=== PATIENT | female | born 1995 | race Caucasian/White ===

== ENCOUNTER 2019-05-24 10:52 | Inpatient (IN) ==
[2019-05-24] MEDS ORDERED: RINGER'S SOLUTION,LACTATED 1,000 ML IV ONE (10:59)
[2019-05-24] MEDS ORDERED: OXYTOCIN/DEXTROSE 5%-WATER 30 UNITS/500 ML BAG IV ONE (10:59)
[2019-05-24] MEDS ORDERED: NALBUPHINE HCL 10 MG/ML AMPUL IV PRN ×2 (10:59)
[2019-05-24] MEDS ORDERED: LIDOCAINE HCL 50 ML VIAL PERI PRN (10:59)
[2019-05-24] MEDS ORDERED: ONDANSETRON 4 MG TAB.RAPDIS PO PRN (10:59)
[2019-05-24] MEDS: RINGER'S SOLUTION,LACTATED 1,000 ML IV PRN ×2 (11:26→19:29)
[2019-05-24] MEDS: VANCOMYCIN HCL 1 GM in DEXTROSE 5 % IN WATER 250 ML IV SCH ×4 (11:29→23:14)
[2019-05-24] MEDS: MISOPROSTOL 100 MCG TABLET VG PRN ×2 (11:40→16:24)
[2019-05-24 12:17] LABS: Cocaine Ur Negative (NEGATIVE); Urine Barbiturate Negative (NEGATIVE); Urine Benzodiazepines Negative (NEGATIVE); Urine Opiates Negative (NEGATIVE); Urine PCP Negative (NEGATIVE); Urine THC Negative (NEGATIVE)
--- NOTE | 2019-05-24 16:40 | HP ---
Chief Complaint - Chief Complaint Date of Service: 05/24/19 Time of Service: 16:34 Chief Complaint: labor induction History of Present Illness: 24 year old @ 40w 3d here for medical IOL due to post due date and variable decelerations on routine monitoring today. She denies regular ctx, vb, lof. Fetus is active Medical History (Updated 05/24/19 @ 10:50 by Nunu Rodriguez MD) Anemia Onset Date: 02/08/19 w/ ADD (attention deficit disorder) Onset Date: Unknown Pancreatitis Onset Date: ~2018 Surgical History: Surgical History (Updated 05/24/19 @ 11:16 by Heather Velez RN) History of tonsillectomy and adenoidectomy H/O myringotomy Onset Date: Unknown Family History: Family History (Updated 10/12/18 @ 09:10 by Jackeline Larkin RN) Mother Alive and well Anemia Social History: (Last Reviewed 05/24/19 @ 11:16 by Heather Velez RN) Social History: Marital status: Single current occupational status: employed current occupation: [email or web address]: No Tobacco: Smoking Status: Current every day smoker tobacco type: cigarettes Alcohol: alcohol intake: former Substance Use: substance use type: does not use Dietary Habits: caffeine: Yes Review Of Systems (GEN) - Review of Systems Generalized/Overall Review: Present: No Symptoms Reported Misc: All systems neg except as marked Allergies/Adverse Reactions: Allergies Allergy/AdvReac Type Severity Reaction Status Date / Time Penicillins Allergy Intermediate hives Verified 05/24/19 11:00 kiwi Allergy rash Verified 05/24/19 11:00 Home Medications: HOME MEDICATIONS acetaminophen 500 mg tablet 500 mg PO Q6H PRN 02/08/19 [Last Taken 05/24/19] ferrous sulfate 325 mg (65 mg iron) tablet 325 mg PO DAILY #30 tab 02/09/19 [Last Taken Unknown] Vits96/Iron Fum/Folic [ S] 1 tab PO DAILY 05/24/19 [Last Taken Unknown] Exam - Exam Vital Signs: Vital Signs - Last Taken Temp 36.5 C 05/24/19 12:23 Pulse 73 05/24/19 12:23 Resp 16 05/24/19 12:23 BP 118/74 05/24/19 12:23 Pulse Ox 97 05/24/19 12:23 Constitutional: Present: Alert, Oriented x3, Cooperative, No distress Respiratory: Present: lungs clear, normal breath sounds Cardiovascular/Chest: Present: regular rate, rhythm, no murmur Abdomen: Present: soft, nontender, nondistended Extremity: Present: non-tender, no calf tenderness Skin Exam: Present: normal color, warm/dry, no cyanosis Appearance: Present: appropriate appearance Eye contact: Present: cooperative Thoughts: Present: normal thought pattern Diagnostic Studies: Laboratory Results Negative (NEGATIVE) 05/24/19 11:40 Negative (NEGATIVE) 05/24/19 11:40 Ur Phencyclidine Scrn Negative (NEGATIVE) 05/24/19 11:40 Urine Amphetamine Negative (NEGATIVE) 05/24/19 11:40 U Benzodiazepines Scrn Negative (NEGATIVE) 05/24/19 11:40 Negative (NEGATIVE) 05/24/19 11:40 Negative (NEGATIVE) 05/24/19 11:40 Blood Type A Positive 05/24/19 11:10 Antibody Screen Negative 05/24/19 11:10 Assessment/Plan - Narrative Narrative: 24 year old @ 40w 3d 1. Medical IOL: cytotec up to 4 doses followed by pitocin administration 2. GBS positive: Vancomycin for prophylaxis
[2019-05-24] MEDS ORDERED: VANCOMYCIN HCL 1 GM in DEXTROSE 5 % IN WATER 250 ML IV SCH ×2 (22:59)
[2019-05-25] MEDS: RINGER'S SOLUTION,LACTATED 1,000 ML IV PRN ×2 (03:10→08:33)
[2019-05-25] MEDS ORDERED: BUPIVACAINE HCL/0.9 % NACL/PF 250 ML EP PRN (06:54)
[2019-05-25] MEDS ORDERED: ONDANSETRON HCL/PF 2 MG/ML VIAL IV PRN (06:54)
[2019-05-25] MEDS ORDERED: NALOXONE HCL 1 MG/1 ML SYRG IV PRN (06:54)
[2019-05-25] MEDS ORDERED: fentaNYL CITRATE/PF 50 MCG/ML AMPUL IT SCH (07:00)
--- NOTE | 2019-05-25 07:09 | ANES ---
Anesthesia Pre Procedure Eval Vitals/Labs: Last Vital Signs Temp 36.5 C 05/24/19 12:23 Pulse 73 05/24/19 12:23 Resp 16 05/24/19 12:23 BP 118/74 05/24/19 12:23 Pulse Ox 97 05/24/19 12:23 HOME MEDICATIONS acetaminophen 500 mg tablet 500 mg PO Q6H PRN 02/08/19 [Last Taken 05/24/19] ferrous sulfate 325 mg (65 mg iron) tablet 325 mg PO DAILY #30 tab 02/09/19 [Last Taken Unknown] Vits96/Iron Fum/Folic [ S] 1 tab PO DAILY 05/24/19 [Last Taken Unknown] Allergies/Adverse Reactions: Allergies Allergy/AdvReac Type Severity Reaction Status Date / Time Penicillins Allergy Intermediate hives Verified 05/24/19 11:00 kiwi Allergy rash Verified 05/24/19 11:00 - Planned Procedure Planned Procedure: MEDICAL INDUCTION Medication List Reviewed:: Yes Allergies Verified: Yes Medical History (Updated 05/24/19 @ 10:50 by Nunu Rodriguez MD) Anemia Onset Date: 02/08/19 w/ ADD (attention deficit disorder) Onset Date: Unknown Pancreatitis Onset Date: ~2017 Surgical History (Updated 05/24/19 @ 11:16 by Heather Velez RN) History of tonsillectomy and adenoidectomy H/O myringotomy Onset Date: Unknown Family History (Updated 10/12/18 @ 09:10 by Jackeline Larkin RN) Mother Alive and well Anemia - Family Anesthesia History Family History:: no untoward family reactions to anesthesia, no familial bleeding tendencies, no family history of clotting disorders, no family history of premature - Airway/Neck/Teeth Within Normal Limits:: Yes Neck Exam: full range of motion Mallampatti Score: 2 Thyromental (T-M) distance: > 6 cm Mandibulo Hyoid distance: > 3 cm - Respiratory Respiratory Physical: lungs clear Smoking Status: Current every day smoker Discussed smoking cessation including day of surgery: No Sleep Apnea currently treated: No Sleep Apnea by current assessment: No - Cardiovascular Tolerate Activity: Fair Heart Sounds: S1 & S2, Regular - Anesthesia Assessment and Plan ASA Class: PS, II, E Anesthesia Type Plan: Epidural
--- NOTE | 2019-05-25 07:30 | ANES ---
Post Anesthesia Discharge - Transfer of Care Transfer of Care handoff given to nurse: Yes - Discharge from PACU Discharge from PACU when meets criteria: Yes - Comfortable now.
--- NOTE | 2019-05-25 07:32 | ANES ---
Anesthesia Procedure Note Procedure Note: ANESTHESIA PROCEDURE NOTE Date of Procedure: [05/25/2019 Time of procedure: 7:10 AM. Performed by: JOSHUA Sheppard CRNA, MSN Auto Hauler: Cara George RN. Preprocedure diagnosis: Active labor, labor pain. Post procedure diagnosis: Same. Procedure:Epidural for labor analgesia L3-4. Indications: Active labor, labor pain. Findings: See below. Details of the procedure: The patient was placed on the side of the bed in sitting positionand prepped with DuraPrep then draped in a sterile fashion. Lidocaine 1% was infiltrated to the skin and subcutaneous tissues at the level of the L3-4 interspace. An 18-gauge Touhy needle was used to approach the epidural space with loss of resistance technique. Once loss of resistance was achieved a 27-gauge spinal needle was passed through the epidural needle and CSF was contacted. After CSF returned, 20 mcg of fentanyl was injected in the spinal needle was removed the epidural catheter was then threaded approximately 4 cm in the epidural needle was removed. The catheter was taped in place and after careful aspiration 3 mL of 1.5% lidocaine with 1-200,000 epinephrine was injected without change in maternal heart rate or sensorium. . EBL: Minimal. Fluids: N/A. Specimen: N/A. Post procedure condition: The patient tolerated the procedure well with good relief. No complications were noted. Thank you for this consultation. Baldomero Perales CRNA, JOSHUA, MSN
--- NOTE | 2019-05-25 08:26 | ANES ---
Post Anesthesia Assessment - Vital Signs Vitals: Last Vital Signs Temp 36.5 C 05/24/19 12:23 Pulse 73 05/24/19 12:23 Resp 16 05/24/19 12:23 BP 118/74 05/24/19 12:23 Pulse Ox 97 05/24/19 12:23 Airway Patency: Normal - Mental Status Level Of Consciousness: Awake, Alert, Appropriate - Pain Level Pain Score: 0 - N/V Assessment Nausea/Vomiting Presence: None Dehydration:: No
--- NOTE | 2019-05-25 11:22 | PN ---
Progess Note - Interim Date: 05/25/19 Time: 11:21 Narrative: 05/25/19 11:21 AROM was accomplished for a small amount of clear fluid There is anterior cervix Will wait until the patient is complete and has the urge to push FHT is cat 1
[2019-05-25] MEDS: VANCOMYCIN HCL 1 GM in DEXTROSE 5 % IN WATER 250 ML IV SCH ×2 (11:39)
[2019-05-25] MEDS ORDERED: HYDROCORTISONE 30 APPL TUBE TP PRN (15:25)
[2019-05-25] MEDS ORDERED: HYDROcodone/ACETAMINOPHEN 1 EACH TABLET PO PRN (15:25)
[2019-05-25] MEDS ORDERED: BISACODYL 10 MG SUPP.RECT RC PRN (15:25)
[2019-05-25] MEDS ORDERED: SENNOSIDES 8.6 MG TABLET PO PRN (15:25)
[2019-05-25] MEDS ORDERED: BENZOCAINE/MENTHOL 81 SPRAY CAN TP PRN (15:25)
[2019-05-25] MEDS ORDERED: GLYCERIN/WITCH HAZEL LEAF 40 APPL BOX TP PRN (15:25)
[2019-05-25] MEDS ORDERED: METHYLERGONOVINE MALEATE 0.2 MG/ML AMPUL IM ONE (15:36)
[2019-05-25] MEDS ORDERED: MISOPROSTOL 200 MCG TABLET RC ONE (15:36)
[2019-05-25] MEDS: HYDROcodone/ACETAMINOPHEN 1 EACH TABLET PO PRN (15:46)
--- NOTE | 2019-05-25 17:59 | OR ---
Operative Report - Dictated Report Narrative: Date of delivery: 05/25/2019 Time of delivery: 1431 Gender: female weight: 3472 grams APGARS: 7/8 Procedure: VAVD Description of the procedure: The patient is a 24 year old @ 40w 4d who presented to labor and delivery for a medical induction of labor due to post due date and heart rate decelerations. She progressed to complete dilation. AROM performed when the patient was 9 cm. The patient was assisted during delivery with a mushroom vacuum due to tachycardia. The vacuum was removed after 3 pop offs. The patient pushed after the last pop off and delivered a viable female infant. There was a tight nuchal cord. The cord was cut at the per ineum. The rest of the infant delivery atraumatically and without difficulty. Meconium-stained amniotic fluid was noted as well as terminal meconium. The placenta was delivered by expression and appeared intact. The patient had brisk bleeding after delivery and thus cytotec 1000 mcg and methergine 0.2 mg IM was given in addition to pitocin. Manual uterine exploration was undertaken and there were a few clots in the lower uterine segment. The bleeding was normal after all these interventions. There was a supraurethral laceration that was repaired while having a catheter in the urethra. 4-0 vicryl was used for the repair. All sponge, lap, and needle counts were correct. EBL: 500 mL Complications: none Specimen: placenta History for Definition: * The number of deliveries resulting in a live the patient experienced prior to current hospitalization * The previous delivery of live twins or any live multiple gestation is considered one live event. *If primagravida or nulliparous is documented select zero for the number of previous live births. Live Events: 0
[2019-05-25] MEDS: IBUPROFEN 800 MG TABLET PO PRN (23:05)
[2019-05-25] MEDS: DOCUSATE SODIUM 100 MG CAPSULE PO SCH (23:06)
--- NOTE | 2019-05-26 09:25 | PN ---
Subjective - Date and Time Seen Date: 05/26/19 Time: 09:23 Subjective Narrative: Patient without complaints Objective Objective Narrative: See vital signs - Review of Systems Generalized/Overall Review: Reports: No Symptoms Reported Misc: All systems neg except as marked - Vitals Vitals: Last Vital Signs Temp 37.0 C 05/25/19 23:02 Pulse 84 05/25/19 23:02 Resp 16 05/25/19 23:02 BP 114/64 05/25/19 23:02 Pulse Ox 98 05/25/19 23:02 - Exam Constitutional: Present: Alert, Oriented x3, Cooperative, No distress Abdomen: Present: soft, nontender, nondistended - fundus is firm Extremity: Present: non-tender, no calf tenderness Skin Exam: Present: normal color, warm/dry, no cyanosis Appearance: Present: appropriate appearance Eye contact: Present: cooperative Thoughts: Present: normal thought pattern Assessment/Plan Plan Narrative: PPD 1 s/p VAVD Doing well Discharge tomorrow
[2019-05-26] MEDS: DOCUSATE SODIUM 100 MG CAPSULE PO SCH ×2 (09:51→21:47)
[2019-05-26] MEDS: IBUPROFEN 800 MG TABLET PO PRN ×2 (13:45→23:47)
[2019-05-27] MEDS: HYDROcodone/ACETAMINOPHEN 1 EACH TABLET PO PRN (00:17)
[2019-05-27] MEDS: DOCUSATE SODIUM 100 MG CAPSULE PO SCH ×2 (10:27→21:27)
--- NOTE | 2019-05-27 11:16 | PN ---
Subjective - Date and Time Seen Date: 05/27/19 Time: 11:15 Subjective Narrative: Patient without complaints Objective Objective Narrative: See vital signs - Review of Systems Generalized/Overall Review: Reports: No Symptoms Reported Misc: All systems neg except as marked - Vitals Vitals: Last Vital Signs Temp 36.0 C 05/26/19 20:15 Pulse 84 05/26/19 20:15 Resp 18 05/26/19 20:15 BP 139/65 05/26/19 20:15 Pulse Ox 98 05/26/19 20:15 - Exam Constitutional: Present: Alert, Oriented x3, Cooperative, No distress Abdomen: Present: soft, nontender, nondistended - fundus is firm Extremity: Present: non-tender, no calf tenderness Skin Exam: Present: normal color, warm/dry, no cyanosis Appearance: Present: appropriate appearance Eye contact: Present: cooperative Thoughts: Present: normal thought pattern Assessment/Plan Plan Narrative: PPD 2 s/p Doing well Discharge home Follow-up in 4 weeks
[2019-05-27] MEDS: ACETAMINOPHEN 500 MG TABLET PO PRN ×3 (11:22→23:54)
[2019-05-27 19:31] VITALS: BP 128/66
== END 2019-05-27 23:57 | disposition home or self-care (01) | DRG 768 ==
LOC: OB 10:52
PROVIDERS: ADMIT Obstetrics & Gynecology; ATTEND Obstetrics & Gynecology
CPT/HCPCS: 59025; 80307; 86850; 88307